=== PATIENT | male | born 1945 | race Caucasian/White ===

== ENCOUNTER → 2024-09-02 10:28 | Outpatient (REF) | payer OTHER, SELFPAY | LOC: PET 10:28 | PROVIDERS: ATTENDING PHYSICIAN Surgery | DX: C43.59 Malignant melanoma of other part of trunk (principal); C77.3 Secondary and unspecified malignant neoplasm of axilla and upper limb lymph nodes | CPT/HCPCS: 78816; A9552 ==

== ENCOUNTER → 2024-09-28 19:06 | Outpatient (REF) | payer OTHER, SELFPAY | LOC: MRI 3T 19:06 | PROVIDERS: ATTENDING PHYSICIAN Family Medicine | DX: R41.89 Other symptoms and signs involving cognitive functions and awareness (principal) | CPT/HCPCS: 70553; A9575 ==

== ENCOUNTER → 2025-04-01 11:25 | Outpatient (REF) | payer OTHER, SELFPAY ==
[2025-04-01 11:31] LABS: % Basophils 1.4 % (0-2); % Eosinophils 6.4 % (0-6); % Immature Granulocytes 0.3 % (0-0.5); % Lymphocytes 21.4 % (20.5-51.1); % Monocytes 8.7 % (1.7-9.3); % Neutrophils 61.8 % (42.2-75.2); Absolute Basophils 0.1 10^3/uL (0-0.2); Absolute Eosinophils 0.4 10^3/uL (0-0.7); Absolute Lymphocytes 1.3 10^3/uL (1.2-3.4); Absolute Monocytes 0.5 10^3/uL (0.1-0.6); Absolute Neutrophils 3.8 10^3/uL (1.4-6.5); Hematocrit 41.6 % (39.0-52.0); Mean Corp Hgb Conc. 33.7 g/dL (33.0-37.0); Mean Corpuscular Hgb 27.9 pg (27.0-31.0); Mean Platelet Volume 11.5 fL (7.4-10.4); Nucleated Red Blood Cells % 0 % (-); Platelet Count 195 10^3/uL (130-400); Red Blood Cell Count 5.01 10^6/uL (4.70-6.10); Red Cell Dist. Width 14.4 % (11.5-14.5); White Blood Cell Count 6.2 10^3/uL (4.8-10.8)
[2025-04-01 11:41] LABS: ALT (SGPT) 25 U/L (0-50); AST (SGOT) 26 U/L (17-59); Albumin 4.5 g/dl (3.5-5.0); Alkaline Phosphatase 98 U/L (38-126); Blood Urea Nitrogen 13 mg/dl (9-20); Calcium 9.2 mg/dl (8.4-10.2); Carbon Dioxide 29 mmol/L (22-30); Chloride 102 mmol/L (98-107); Glucose 107 mg/dl (70-99); Potassium 4.7 mmol/L (3.5-5.1); Sodium 141 mmol/L (135-145); Total Bilirubin 1.2 mg/dl (0.2-1.3); Total Protein 6.8 g/dl (6.3-8.2); eGFR > 60.00
== END ==
LOC: OIDL 11:25
PROVIDERS: ATTENDING PHYSICIAN Nurse Practitioner Adult Health
DX: C43.59 Malignant melanoma of other part of trunk (principal)
CPT/HCPCS: 80053; 85025

== ENCOUNTER → 2025-08-31 08:19 | Outpatient (REF) | payer OTHER, SELFPAY ==
[2025-08-31 08:28] LABS: Glucose 95 mg/dl (70-99)
== END ==
LOC: PET 08:19
PROVIDERS: ATTENDING PHYSICIAN Internal Medicine Hematology & Oncology
DX: C43.59 Malignant melanoma of other part of trunk (principal)
CPT/HCPCS: 36415; 78816; 82947; A9552

== ENCOUNTER → 2025-09-15 13:39 | Outpatient (REF) | payer OTHER, SELFPAY | LOC: HWRAD 13:39 | PROVIDERS: ATTENDING PHYSICIAN Internal Medicine Critical Care Medicine; FAMILY PHYSICIAN Family Medicine | DX: R91.1 Solitary pulmonary nodule (principal) | CPT/HCPCS: 71250 ==

== ENCOUNTER 2025-10-03 06:30 | Day surgery (SDC) | payer OTHER, SELFPAY ==
[2025-09-27 08:48] LABS: Hematocrit 47.7 % (39.0-52.0); Hemoglobin 15.5 g/dL (13.0-18.0); Mean Corp Hgb Conc. 32.5 g/dL (33.0-37.0); Mean Corpuscular Volume 84.3 fL (80.0-94.0); Platelet Count 244 10^3/uL (130-400); Red Cell Dist. Width 14.2 % (11.5-14.5)
[2025-09-27 09:00] LABS: INR 1.06; PT 14.2 Sec (11.4-14.6)
[2025-09-27 09:01] LABS: APTT 29.2 Sec (23.4-35.0)
[2025-09-27 09:21] LABS: Blood Urea Nitrogen 24 mg/dl (9-20); Calcium 9.6 mg/dl (8.4-10.2); Carbon Dioxide 32 mmol/L (22-30); Chloride 100 mmol/L (98-107); Glucose 102 mg/dl (70-99); Potassium 5.2 mmol/L (3.5-5.1); Sodium 141 mmol/L (135-145); eGFR > 60.00
[2025-09-27 14:10] VITALS: BMI 29.3
[2025-10-03] VITALS (11 sets, daily range): BP systolic 121–142; BP diastolic 55–87; BMI 29.3
[2025-10-03] MEDS: VENTOLIN NEBULES 2.5 MG INH (08:34)
[2025-10-03] MEDS: NSS 500 IV (08:48)
--- NOTE | 2025-10-03 14:26 | PTCARENOTE ---
Dr. Garcia was made aware via [place] text that the patients spouse was never spoken to by Dr. Garcia. RN gave him her name and phone number.
== END 2025-10-03 11:50 | disposition home or self-care (01) ==
LOC: GI 06:30
PROVIDERS: ATTENDING PHYSICIAN Internal Medicine; FAMILY PHYSICIAN Family Medicine; OTHER PHYSICIAN Internal Medicine Cardiovascular Disease
DX: R91.1 Solitary pulmonary nodule (principal); C78.01 Secondary malignant neoplasm of right lung; Z85.820 Personal history of malignant melanoma of skin
CPT/HCPCS: 31629; 31628; 31623; 31624; 31627; 31654; 71045; 76000; 80048; 85027; 85610; 85730; 87070; 87102; 87116; 87205; 88112; 88173; 88305; 88333; 88341; 88342; 93005; 94640; C1887

== ENCOUNTER → 2025-11-30 14:14 | Outpatient (REF) | payer OTHER, SELFPAY | LOC: RAD 14:14 | PROVIDERS: ATTENDING PHYSICIAN Internal Medicine Critical Care Medicine; FAMILY PHYSICIAN Family Medicine | DX: R06.00 Dyspnea, unspecified (principal) | CPT/HCPCS: 71046 ==